=== PATIENT | female | born 1980 | race African-American/Black ===

== ENCOUNTER 2020-07-11 12:53 | Emergency (ER) | payer OTHER ==
[2020-07-11 14:09] LABS: BASOPHIL 0.3 % (0-2); EOSINOPHIL 3.8 % (0-5); HCT 36.1 % (37.0-47.0); HGB 12.6 g/dl (12.5-16.0); LYMPHOCYTE 22.7 % (15-48); MCH 26.5 pg (25.0-31.0); MCHC 34.9 g/dL (32.0-36.0); MONOCYTE 6.7 % (0-12); MPV 10.4 fL (6.0-9.5); NRBC 0; PLT 401 K/uL (150-400); RBC 4.75 M/uL (4.20-5.40); RDW 15.6 % (11.5-14.0); WBC 6.4 K/uL (4.0-10.5)
[2020-07-11 14:36] LABS: ALBUMIN 3.1 g/dL (3.4-5.0); BILIRUBIN - TOTAL 0.2 mg/dL (0.2-1.0); BUN/CREAT RATIO (CALC) 12.9 RATIO; CREATININE 0.62 mg/dL (0.51-0.95); GLOBULIN (CALCULATION) 3.9 g/dL; POTASSIUM 3.8 mmol/L (3.5-5.1)
[2020-07-11] MEDS ORDERED: LOMOTIL1 EACH PO (14:51)
[2020-07-11] MEDS ORDERED: ZOFRAN4 M1 PO (14:51)
[2020-07-11] MEDS ORDERED: BENTYL10 MG PO (14:51)
== END 2020-07-11 15:37 | disposition home or self-care (01) ==
LOC: FER 12:53
PROVIDERS: Emergency Medicine
DX: T14.8XXA Other injury of unspecified body region, initial encounter (principal); R19.7 Diarrhea, unspecified; R10.9 Unspecified abdominal pain; W57.XXXA Bitten or stung by nonvenomous insect and other nonvenomous arthropods, initial encounter
CPT/HCPCS: 36415; 80053; 85025; 99284